=== PATIENT | female | born 1950 | race Caucasian/White ===

== ENCOUNTER 2020-10-11 13:57 | Emergency (ER) | payer MEDICARE, SELFPAY ==
[2020-10-11 13:58] VITALS: BP 159/70; PULSE 67; RESP 18; TEMP 35.9; O2SAT 97; BMI 35.3
--- NOTE | 2020-10-11 15:23 | EDS_ITS ---
HPI History of Present Illness Chief Complaint: Lower Extremity Injury Informant: patient Narrative Narrative: 70-year-old female with a history of atrial fibrillation on Coumadin diltiazem and amiodarone states that she noticed several hard lumps on her lower left leg and went to urgent care. She states that they were worried about a DVT so they sent her to the emergency department. She denies any known trauma to the leg. She denies any calf pain or swelling. She notes an area of ecchymosis over the medial inferior aspect of the left ankle. She notes a small nodule near some varicosities in the mid pham region as well as another 1 over some varicosities over the lateral left leg. [facility] Medical History Atrial fibrillation History of rheumatic fever as a child Home Medications amiodarone 200 mg PO DAILY 10/11/20 [History Last Taken Unknown] diltiazem HCl 180 mg PO DAILY 10/11/20 [History Last Taken Unknown] multivitamin 1 tab PO DAILY 10/11/20 [History Last Taken Unknown] warfarin 2 mg PO DAILY 10/11/20 [History Last Taken Unknown] Allergy/AdvReac Type Severity Reaction Status Date / Time No Known Allergies Allergy Verified 10/11/20 13:59 Surgical History H/O: hysterectomy History of neck surgery History of surgery on left wrist Social History (Updated 10/11/20 @ 15:[address] Titi Enamorado DO) Smoking Status: Never smoker substance use type: does not use ROS ROS ED Constitutional Constitutional ED: Denies chills or weight loss Eyes Eyes: Denies change in vision or diplopia ENT ENT ED: Denies ear pain, rhinorrhea or sore throat Cardiovascular Cardiovascular: Denies chest pain, orthopnea, palpitations or racing heartbeat Respiratory/Chest Respiratory/Chest: Denies cough, dyspnea or orthopnea Gastrointestinal Gastrointestinal: Denies abdominal pain, diarrhea, nausea or vomiting Genitourinary Genitourinary ED: Denies dysuria, hematuria or urinary frequency Musculoskeletal Musculoskeletal: Denies arthralgias or myalgias Integumentary Reports other Details: Easy bruising ; Denies abscess or rash Neurologic Neurologic: Denies headache(s) or weakness Psychiatric Psychiatric: Denies anxiety, depression, suicidal ideation or suicidal thoughts Endocrine Endocrinology: Denies polydipsia, polyphagia or polyuria Allergic/Immunologic Allergic/Immunologic ED: Denies mouth swelling, tongue swelling or urticaria EXAM Physical Exam Const Vital Signs: 10/11/20 13:58 Temperature 96.6 F L Temperature Source Temporal Pulse Rate 67 Respiratory Rate 18 Blood Pressure 159/70 H Blood Pressure Mean 99 Pulse Ox 97 Oxygen Delivery Method Room Air Positive well nourished and well developed General Appearance ED: well developed HEENT Reports normocephalic, head/scalp atraumatic and moist mucous membranes Eyes PERRL and EOMs intact bilaterally Neck no lymphadenopathy, supple and no JVD Resp normal respiratory effort and clear to auscultation bilaterally Cardio regular rate, regular rhythm and no murmurs GI normal to inspection, nondistended, normoactive bowel sounds and non-tender Palpation: soft Back/Spine no CVA tenderness and normal ROM Extremity normal to inspection General Extremety ED: Negative for edema General Extremity: Negative for edema Neuro oriented x3 and CN's II-XII intact bilaterally Sensorium / Orientation: alert Motor Exam: strength 5/5 throughout Psych mental status grossly normal Mood & Affect: Negative for depressed or tearful Skin no wounds Skin Narrative: There are multiple small petechial lesions of the bilateral lower legs. There is a small half centimeter nodule over the anterior pham in the vicinity of some varicosities. There is an area of ecchymosis over the medial inferior aspect of the left ankle. There is a small half centimeter nodule there are some varicosities over the left lateral lower leg. There is no calf swelling or ankle swelling compared to the right side. There is no calf tenderness. There are no palpable cords. MDM MDM MDM Narrative Medical decision making narrative: I do not feel that this represents DVT. We will check her INR and her CBC. Her INR returns at 2.6. Patient CBC is normal. Patient will be discharged home with supportive care. Lab Data Labs: Laboratory Results - last 24 hr 10/11/20 10/11/20 15:35 15:50 WBC 7.4 RBC 4.04 L Hgb 12.5 Hct 38.9 MCV 96.3 MCH 30.9 MCHC 32.1 RDW Std Deviation 48.0 H RDW Coeff of Bart 13.4 Plt Count 221 MPV 11.6 Immature Gran % (Auto) 0.500 Neut % (Auto) 74.8 H Lymph % (Auto) 17.1 L Sharkey % (Auto) 6.0 Eos % (Auto) 0.8 Baso % (Auto) 0.8 Absolute Neuts (auto) 5.5 Absolute Lymphs (auto) 1.26 Nucleated RBC % 0 PT 27.4 H INR 2.6 Discharge Plan Triage Chief Complaint: Lower Extremity Injury ED Provider: Titi Enamorado Dx/Rx/DC Orders Clinical Impression: Hematoma, Anticoagulated on Coumadin Instructions: ED Hematoma Prescriptions: No Action multivitamin Tablet 1 tab PO DAILY RF: 0 diltiazem HCl 180 mg Capsule,Extended Release 24 Hr 180 mg PO DAILY RF: 0 amiodarone 200 mg Tablet 200 mg PO DAILY RF: 0 warfarin 2 mg Tablet 2 mg PO DAILY RF: 0 Primary Care Provider: Care Physician,No Primary Referrals: Care Physician,No Primary [Primary Care Provider] - Activity Restrictions/Additional Instructions: Your INR today is 2.6. Disposition Disposition: Home, self care
[2020-10-11 15:57] LABS: Absolute Lymphocyte Count 1.26 X10^3/uL (0.83-4.51); Absolute Neutrophil Count 5.5 X10^3/uL (2.0-7.7); Basophil# 0.06 X10^3/uL; Basophil% 0.8 % (0-1); Eosinophil# 0.06 X10^3/uL; Eosinophils% 0.8 % (0-5); Hematocrit 38.9 % (37-47); Hemoglobin 12.5 g/dL (12.0-15.0); Lymphocyte # 1.26 X10^3/ul (0.83-4.51); Lymphocyte % 17.1 % (19-41); Mean Corp Hgb Conc 32.1 g/dL (32-36); Mean Corpuscular Hgb 30.9 pg (27.0-32.0); Mean Corpuscular Volume 96.3 fL (81-99); Mean Platelet Vol. 11.6 fl (6.2-12.0); Monocyte# 0.44 X10^3/uL; NRBC Flagged by Analyzer 0 % (0-5); Neutrophil % 74.8 % (47-70); POSITIVE COUNT YES; Platelet Count 221 K/mm3 (150-450); RBC Distribution Width CV 13.4 % (11.6-14.6); Red Blood Count 4.04 M/mm3 (4.2-5.4); White Blood Count 7.4 K/mm3 (4.4-11.0)
[2020-10-11 15:57] LABS: International Normalized Ratio 2.6; Prothrombin Time (Protime)PT. 27.4 SECONDS (11.7-14.9)
== END 2020-10-11 16:25 | disposition home or self-care (01) ==
PROVIDERS: Emergency Provider Emergency Medicine
DX: S80.12XA Contusion of left lower leg, initial encounter (principal); S80.11XA Contusion of right lower leg, initial encounter; X58.XXXA Exposure to other specified factors, initial encounter; Z79.01 Long term (current) use of anticoagulants
CPT/HCPCS: 85025; 85610; 99282